=== PATIENT | female | born 2005 | race Caucasian/White ===

== ENCOUNTER 2023-08-01 01:17 | Emergency (ER) | payer OTHER ==
[~2023-08-01] VITALS: Ht 165.1 cm; Wt 72.7 kg
[2023-08-01] MEDS ORDERED: ALPRAZolam 0.5 MG TAB PO ONE ×2 (02:00→03:15)
[2023-08-01] MEDS ORDERED: XANAX 0.5MG0.5 MG PO (03:19)
[2023-08-01 03:24] VITALS: BP 113/55; PULSE 79; TEMP 98.3
== END 2023-08-01 03:30 | disposition home or self-care (01) ==
LOC: COL.ER 01:17
DX: F41.1 Generalized anxiety disorder (principal); F41.0 Panic disorder [episodic paroxysmal anxiety]; F44.4 Conversion disorder with motor symptom or deficit